=== PATIENT | male | born 1935 | race Caucasian/White ===

== ENCOUNTER 2022-03-10 11:54 | Inpatient (IN) | payer OTHER, MEDICAID ==
[~2022-03-10] VITALS: Ht 168.9 cm; Wt 77.6 kg
[~2022-03-10 11:54] MED LIST: CITALOPRAM40 MG PO; MEMANTINE HCL10 MG PO; PROVERA10 MG PO; QUALITY CHOICE81 M1 PO; RIVASTIGMINE1 EAC2 T; ROZEREM8 MG PO; SIMVASTATIN20 MG PO; TOPROL XL25 MG PO; TYLENOL325 M1 PO; VITAMIN D350 MC2 PO; ZESTRIL10 MG PO; ZITHROMAX TRI-500 M1 PO
[2022-03-10 15:39] VITALS: BP 164/83
[2022-03-10 20:00] VITALS: BP 142/58
[2022-03-11 06:27] LABS: ALKALINE PHOSPHATASE 46 U/L (45-117); BUN 14 mg/dl (7-24); CHLORIDE 108 mmol/L (98-107); CHOLESTEROL 105 mg/dL (<200); CREATININE 0.98 mg/dL (0.70-1.30); POTASSIUM 4.1 mmol/L (3.5-5.1); SGOT/AST 13 IU/L (3-35); SGPT/ALT 27 U/L (12-78); SODIUM 139 mmol/L (136-145); TOTAL PROTEIN 5.7 gm/dL (6.4-8.2); TRIGLYCERIDES 59 mg/dl (<150)
[2022-03-11 06:36] LABS: LDL CHOLESTEROL 57 mg/dL (9-159); THYROID STIM HORMONE (HS) 0.524 uIU/ml (0.358-4.75)
[2022-03-11 06:39] LABS: BASO % 0.2 % (0.0-1.0); EOS # 0.1 10*3/uL (0.0-0.4); EOS % 2.1 % (1.0-4.0); HEMATOCRIT 44.2 % (42.0-52.0); LYMPH # 1.6 10*3/uL (1.3-4.4); LYMPH % 24.3 % (27.0-41.0); MEAN CELL VOLUME 86.7 fl (80.0-94.0); MEAN CORPUSCULAR HGB 28.8 pg (27.0-31.0); MEAN CORPUSCULAR HGB CONC 33.3 g/dl (33.0-37.0); MEAN PLATELET VOLUME 10.5 fl (9.6-12.3); MONO # 0.5 10*3/uL (0.1-1.0); MONO % 8.2 % (3.0-9.0); NEUT # 4.3 10*3/uL (2.3-7.9); NEUT % 64.7 % (47.0-73.0); PLATELET COUNT AUTOMATED 140 10*3/uL (130-400); RED CELL DISTRI WIDTH 13.2 % (0-14.5); WHITE BLOOD COUNT 6.6 10*3/uL (4.8-10.8)
[2022-03-11 07:03] LABS: VITAMIN D, 25-HYDROXY 45.4 ng/mL (30-100)
[2022-03-11 07:29] VITALS: BP 151/90
[2022-03-11 19:04] VITALS: BP 148/72
[2022-03-12 07:04] VITALS: BP 139/83
[2022-03-12 19:37] VITALS: BP 149/86
[2022-03-13 07:54] VITALS: BP 152/86
[2022-03-13 20:00] VITALS: BP 142/80
[2022-03-14 07:00] VITALS: BP 138/86
[2022-03-14 20:00] VITALS: BP 146/82
[2022-03-15 07:25] VITALS: BP 142/84
[2022-03-15] MEDS ORDERED: RIVASTIGMINE1 EAC2 T (07:30)
[2022-03-15] MEDS ORDERED: DIVALPROEX SOD250 MG PO (07:30)
[2022-03-15] MEDS ORDERED: MEDROXYPROGESTE10 M1 PO (07:30)
[2022-03-15] MEDS ORDERED: FOLTABS 800 TA1 EACH PO (07:30)
[2022-03-15] MEDS ORDERED: MEMANTINE HCL10 MG PO (07:30)
[2022-03-15] MEDS ORDERED: CITALOPRAM20 MG PO (07:30)
[2022-03-15] MEDS ORDERED: VITAMIN D350 MC2 PO (07:30)
== END 2022-03-15 11:52 | DRG 881 ==
LOC: 3N 11:54
PROVIDERS: Registered Nurse; ADMIT Psychiatry & Neurology Psychiatry; ATTEND Psychiatry & Neurology Psychiatry
DX: F32.9 Major depressive disorder, single episode, unspecified (principal); N17.0 Acute kidney failure with tubular necrosis; J69.0 Pneumonitis due to inhalation of food and vomit; E44.0 Moderate protein-calorie malnutrition; F32.A Depression, unspecified; F63.9 Impulse disorder, unspecified; F41.9 Anxiety disorder, unspecified; R73.9 Hyperglycemia, unspecified; Z66 Do not resuscitate; R73.03 Prediabetes; Z51.5 Encounter for palliative care; E53.8 Deficiency of other specified B group vitamins; E87.8 Other disorders of electrolyte and fluid balance, not elsewhere classified; I95.9 Hypotension, unspecified; I10 Essential (primary) hypertension; I25.10 Atherosclerotic heart disease of native coronary artery without angina pectoris; G30.9 Alzheimer's disease, unspecified; F02.80 Dementia in other diseases classified elsewhere, unspecified severity, without behavioral disturbance, psychotic disturbance, mood disturbance, and anxiety; Z68.27 Body mass index [BMI] 27.0-27.9, adult